=== PATIENT | female | born 1955 | race Caucasian/White ===

== ENCOUNTER 2016-10-12 10:22 | Inpatient (IN) | payer OTHER ==
--- NOTE | ~2016-10-12 | DS ---
Discharge Summary [address] [place]. [address] NAME: MICHEL JACK : 59 STATUS : DIS IN PAT#: [id number] AGE: 60 ADM/REG DATE : 10/12/16 MR#: [id number] REPORT SERV DATE: 10/19/16 DICTATED BY: SCOOTER OCHOA DATE: 10/18/16 REPORT STATUS : Draft TRANSCRIBED BY: KATHY DATE: 10/18/16 ADMISSION DATE: 10/12/2016 DISCHARGE DATE: 10/18/2016 CONSULTATION: None. INVASIVE PROCEDURE: Mechanical intubation and ventilatory support. DISCHARGE DIAGNOSES: 1. Acute hypoxic respiratory failure. 2. Community-acquired pneumonia. 3. Ljaqpla-Notwm-Avall disease. 4. Protein energy malnutrition with cachexia. 5. History of osteoporosis with multiple spine fractures. 6. Hypothyroidism. 7. Relative adrenal insufficiency. 8. History of laryngeal cancer, diagnosed in 2007. 9. History of seizure disorder. 10.History of gastroesophageal reflux disease. DISCHARGE CONDITION: Stable. HISTORY OF PRESENT ILLNESS: For detailed HPI, please make reference to Dr. Mehul Panda's dictation on 10/12/2016. In brief, this is a 60-year-old female with medical history of Vnuwzmd-Cqdbg-Tpebm disease, nonambulatory at home, history of multiple spine fractures, who presented to the emergency room department with concerns of shortness of breath and hypoxia of oxygen level of 62% at home. On presentation in the ER, the patient failed non- rebreather and BiPAP and was subsequently intubated through rapid sequence intubation. The patient was placed on mechanical ventilation. The patient subsequently had a chest x-ray that showed bibasilar atelectasis concerning for community-acquired pneumonia. The patient was started on broad-spectrum antibiotics in the ER. ICU was consulted for evaluation and admission. The patient was subsequently admitted to the MICU. HOSPITAL COURSE: 1. Severe acute hypoxic respiratory failure secondary to community acquired pneumonia. The patient was continued on broad-spectrum antibiotics. Sputum culture came back positive for Klebsiella pneumoniae, pansensitive. The patient was transitioned from broad-spectrum antibiotics to IV Unasyn. The patient's respiratory status continued to improve. Subsequently, she passed SBT trial and was weaned and . The patient was subsequently transferred to the medical floor for further monitoring. While on the floor, the patient's respiratory status continued to improve. The patient was subsequently weaned off oxygen. At the time of discharge, the patient was saturating 100% on room air. The patient's IV Unasyn was transitioned to p.o. Augmentin prior to discharge. The patient was advised to complete a total of seven days antibiotic therapy. The patient was advised to follow up with primary care physician within one to two weeks of discharge. Discharge Summary [address] [place]. [address] NAME: MICHEL JACK : 59 STATUS : DIS IN PAT#: [id number] AGE: 60 ADM/REG DATE : 10/12/16 MR#: [id number] REPORT SERV DATE: 10/19/16 DICTATED BY: SCOOTER OCHOA DATE: 10/18/16 REPORT STATUS : Draft TRANSCRIBED BY: KATHY DATE: 10/18/16 2. Relative adrenal insufficiency. In the ICU, the patient was noted to have a random cortisol of 12, was started on IV hydrocortisone in the ICU for relative . This was subsequently weaned and tapered prior to discharge. The patient was advised to follow up with primary care physician for further evaluation. 3. Septic shock secondary to community-acquired pneumonia. The patient was hypotensive during the course of this admission despite IV fluid resuscitation, required vasopressor while in the ICU. This was subsequently weaned off prior to transfer to medical floor. While on the medical floor, the patient's blood pressure remained stable and sepsis profile subsequently improved with antibiotics treatment prior to discharge. The patient's white blood cell count remained stable. The patient's blood pressure was normal. The patient remained afebrile. The patient was advised to complete seven days of antibiotics and follow up with primary care physician. 4. History of Ftiolda-Lzuyy-Osjwm disease with underlying history of seizure disorder. The patient had no seizures throughout the course of this admission. The patient's home dose of antiepileptic drug was continued during the course of this admission. 5. Hypothyroidism. The patient's levothyroxine was continued prior to discharge. The patient was advised to continue levothyroxine and follow up with primary care physician. DISCHARGE CONDITION: Stable. DISCHARGE FOLLOWUP: 1. Follow up with primary care physician within one to two weeks of discharge. 2. Resume home health. DISCHARGE MEDICATIONS: 1. Prednisone taper. 2. Augmentin 875 mg p.o. b.i.d. 3. Levothyroxine 150 mcg p.o. daily. 4. Folic acid 1 mg p.o. daily. 5. Cholecalciferol 1000 units p.o. daily. 6. Vitamin B12, 2500 mcg p.o. daily. 7. Oxcarbazepine 600 mg tab p.o. b.i.d. 8. Raloxifene 60 mg p.o. daily. 9. Vitamin B1, 500 mg tab p.o. daily. 10.Potassium 20 mEq p.o. t.i.d. 11.Hydrocodone 10/325 p.o. b.i.d. 12.Triazolam 0.25 mg p.o. at bedtime. DISCHARGE ACTIVITY: As tolerated. DISCHARGE DIET: Regular diet. Greater than 35 minutes was used to prepare this patient's discharge, reconcile medication, advise the patient on discharge plans and followup. Discharge Summary [address] [address] NAME: MICHEL JACK : 59 STATUS : DIS IN PAT#: [id number] AGE: 60 ADM/REG DATE : 10/12/16 MR#: [id number] REPORT SERV DATE: 10/19/16 DICTATED BY: SCOOTER OCHOA DATE: 10/18/16 REPORT STATUS : Draft TRANSCRIBED BY: KATHY DATE: 10/18/16 DICTATED BY: MD SARA Saavedra/KATHY Scooter Ochoa MD / [id number] CC: MD Noe Saavedra D.O. Bradley Keel, DO Chad E. Paxson, DO
--- NOTE | ~2016-10-12 | IDS ---
Interim Discharge Summary [facility] [address] [place]. [address] NAME: MICHEL JACK : 59 STATUS : ADM IN [facility]#: [id number] AGE: 60 ADM/REG DATE : 10/12/16 MR#: [id number] REPORT SERV DATE: 10/15/16 DICTATED BY: MEAGAN FRITZ DATE: 10/15/16 REPORT STATUS : Draft TRANSCRIBED BY: MODL DATE: 10/15/16 ADMISSION DATE: 10/12/2016 DISCHARGE DATE: REASON FOR ADMISSION: Acute hypoxemic respiratory failure likely secondary to acute community-acquired pneumonia. Please see Dr. Panda's detailed admitting history and physical dated 10/12/2016 for full details of hospitalization and presentation. HISTORY: Ms. Jack is a 60-year-old lady with underlying Owuigsb-Zddts-Drgge disease, who is nonambulatory at home and gets around in a wheelchair with history multiple spine fractures, who was found to be short of breath at home by family. EMS was called and brought to the emergency room. She was found to be quite hypoxemic with a room air sat of 62%. She was initially placed on a non-rebreather, then BiPAP, and ultimately intubated. She was treated with IV fluids and antibiotics in the emergency department and moved up to the CCU. HOSPITAL COURSE: Ms. Jack clinically improved after treatment with antibiotics for a few days. Her initial regimen was azithromycin and cefepime. She was de-escalated to Unasyn monotherapy on 10/14/2016 also extubated. Her pressors were weaned off and she was continued on stress-dose steroids for mild renal insufficiency with a high metabolic demand due to critical illness. Over the last 24 hours, she has remained clinically stable on 3 L of oxygen and is interactive with her family. She is now moving to the floor for ongoing rehab. ACTIVE PROBLEM LIST: 1. Acute hypoxemic respiratory failure. She is extubated. Continue pulmonary toilet oxygen weaning as tolerated. 2. Klebsiella pneumonia, which is sensitive to Unasyn. She is on day #4 of antibiotics. 3. Septic shock secondary to the above. She is off vasopressors and we are weaning hydrocortisone. 4. Fkebtzi-Aarzy-Irzke disease and a history of underlying seizure disorder, hypothyroidism, and general debility. All stable. 5. Mild thrombocytopenia, is improving, likely secondary to (sepsis). We will plan to move Ms. Jack to monitored bed today and transfer care to Hospital Medicine Service. She has morning labs ordered for tomorrow. Physical Therapy has been consulted. Please call with questions. HATTIE/KATHY Meagan Fritz MD Interim Discharge Summary [address] [address] NAME: MICHEL JACK : 59 STATUS : ADM IN PAT#: [id number] AGE: 60 ADM/REG DATE : 10/12/16 MR#: [id number] REPORT SERV DATE: 10/15/16 DICTATED BY: MEAGAN FRITZ DATE: 10/15/16 REPORT STATUS : Draft TRANSCRIBED BY: KATHY DATE: 10/15/16 / [id number] CC: DO Noe French D.O.
--- NOTE | ~2016-10-12 | HP ---
History And Physical [address] [place]. [address] NAME: MICHEL JACK : 59 STATUS : ADM IN [facility]#: [id number] AGE: 60 ADM/REG DATE : 10/12/16 MR#: [id number] REPORT SERV DATE: 10/12/16 DICTATED BY: MEHUL PANDA DATE: 10/12/16 REPORT STATUS : Draft TRANSCRIBED BY: MODL DATE: 10/12/16 DATE OF ADMISSION: 10/12/2016 60-year-old white female, who is chronically ill with a history of Xiwetys-Khwfx-Thsqv disease, nonambulatory at home, history of multiple spine fractures, who presented today because of acute onset of shortness of breath and hypoxia with oxygen level down to 62% at home. EMS was called and the patient was transported to the emergency room. The patient failed non-rebreather and BiPAP and so had to be intubated through rapid sequence intubation. When I arrived, she was on the ventilator getting IV fluids as well as antibiotics include cefepime and azithromycin for probable pneumonia and she was on propofol for sedation. and daughter were at bedside. The patient does live at home with family and apparently was doing fine yesterday, but then started having issues of shortness of breath with tremor and with low oxygen. She has not been in the hospital in over a year and she has not been on any recent antibiotics or steroids. Chest x-ray shows bibasilar atelectasis right greater than left. REVIEW OF SYSTEMS: Kpijubn-Efzyc-Ylnzv; osteoporosis; multiple vertebral fractures in the past; stage IV laryngeal cancer diagnosed 2007, received chemotherapy; history of seizure disorder; GERD. PAST SURGICAL HISTORY: Hysterectomy, right breast augmentation. ALLERGIES: CODEINE. HOME MEDICATIONS: Reviewed. SOCIAL HISTORY: Lives at home. with children. No tobacco, alcohol, or illicit drugs. FAMILY MEDICAL HISTORY: Noncontributory. LABORATORY DATA AND RADIOLOGY STUDIES: Reviewed. ASSESSMENT AND PLAN: 1. Acute hypoxic respiratory failure. 2. Community-acquired pneumonia. 3. Malnutrition. 4. Sqbphzd-Xatqu-Zzonu. 5. History of osteoporosis and multiple spine fractures. The patient is on the ventilator. Settings were reviewed and adjusted by myself. We will get a repeat arterial blood gas and adjust accordingly. Chest x-ray shows ET tube in good position. We will follow up sputum, blood, and urine cultures as well as urine antigens for strep and Legionella. She is on cefepime and azithromycin. We will continue this in the ICU. She is currently getting IV fluid bolus and will put her on maintenance fluids of LR at 150 mL an hour. We will get patient a PICC line. The patient may need pressors, we will History And Physical [address] [address] NAME: MICHEL JACK : 59 STATUS : ADM IN PAT#: [id number] AGE: 60 ADM/REG DATE : 10/12/16 MR#: [id number] REPORT SERV DATE: 10/12/16 DICTATED BY: MEHUL PANDA DATE: 10/12/16 REPORT STATUS : Draft TRANSCRIBED BY: KATHY DATE: 10/12/16 monitor this closely. She is on propofol for sedation. Followup routine lab work and medicine reconciliation was performed. requested the patient to be full code at this time. 35 minutes of critical care time. CEP/MODL Mehul Panda DO / [id number] CC: DO Noe French D.O.
[2016-10-12 09:59] LABS: BASOPHILS 0.1 %; BASOPHILS ABSOLUTE 0.01 10/3/uL (0.0-0.16); EOSINOPHILS 0 %; IMMATURE GRANULOCYTES 0.2 %; IMMATURE GRANULOCYTES ABSOLUTE 0.02 10/3/uL (0.0-0.11); LYMPHOCYTES 6.2 %; LYMPHOCYTES ABSOLUTE 0.77 10/3/uL (0.67-4.30); MEAN CORPUS HGB CONC 33.4 g/dL (32.0-36.0); MEAN CORPUSCULAR HEMOGLOB 31.1 pg (26.0-34.0); MEAN PLATELET VOLUME 10.4 fL (9.2-13.0); MONOCYTES 4.4 %; MONOCYTES ABSOLUTE 0.55 10/3/uL (0.21-1.20); NEUTROPHILS 89.1 %; NEUTROPHILS ABSOLUTE 11.04 10/3/uL (2.02-8.40); RED CELL COUNT 4.27 10/6/uL (4.0-5.6)
[2016-10-12 10:04] LABS: ER CBC TAT 0 Hrs 13 Mins; HEMATOCRIT 39.8 % (36.0-48.0); HEMOGLOBIN 13.3 g/dL (12.0-16.0); MANUAL DIFF NO %; MEAN CORPUSCULAR VOLUME 93.2 fL (80-100); PLATELET COUNT 130 10/3/uL (150-400); RBC DISTRIBUTION WIDTH 12.5 % (12.0-16.0); WHITE BLOOD CELLS 12.4 10/3/uL (4.5-10.5)
[2016-10-12 10:06] LABS: PARTIAL THROMBO TIME 24.7 SEC (22.5-37.2); PROTIME (NOT ORD) 13.5 SEC (12.0-14.5)
[2016-10-12 10:22] LABS: A/G RATIO 1.2 (0.7-1.9); ALBUMIN 3.8 G/DL (3.5-5.0); ALKALINE PHOSPHATASE 96 U/L (45-117); BUN (BLOOD UREA NITROGEN) 12 MG/DL (6-23); CALCIUM, SERUM 9.1 MG/DL (8.5-10.4); CHLORIDE, SERUM 103 MMOL/L (96-112); CO2 (CARBON DIOXIDE) 25 MMOL/L (24-34); GFR AFRICAN AMERICAN 124 ML/MIN (>=60); GFR NON AFRICAN AMERICAN 107 ML/MIN (>=60); GLOBULIN 3.3 G/DL (2.5-4.1); GLUCOSE, SERUM 142 MG/DL (60-99); LACTATE 2.2 MMOL/L (0.3-2.4); POTASSIUM, SERUM 4.2 MMOL/L (3.5-5.3); SGOT(AST) 29 U/L (5-40); SGPT(ALT) 28 U/L (5-65); SODIUM, SERUM 136 MMOL/L (135-148); TOTAL BILIRUBIN 0.4 MG/DL (0-1.2); TOTAL PROTEIN 7.1 G/DL (6.0-8.5)
[~2016-10-12 10:22] MED LIST: AMB10 PO; B1100 PO; BENZACLIN TOP; BIOTENE DRY; BIOTENE DRY MT; CIP5 PO; CLINDAGEL1 % T; CLINDAMAX1 % TOP; DURA12 TOP; DURA50 TOP; EVISTA60 PO; FOLIC PO; HALCION0.25 MG; HALCION0.25 MG PO; KLOR-CON M2020 MEQ PO; KLOR-CON20 MEQ PO; LEVAQUIN750 MG PO; LEVOTHYROXIN100 MCG PO; LEVOTHYROXIN150 MCG PO; MAGOX4 PO; NORCO1 TAB PO; OXYCOD PO; PHOSPHA 250 PO; PR25 PO; PRILO PO; PROTONIX PO; SUCR; SUCR PO; SYN1 PO; SYNTHROID137 MCG PO; TOPXL50; TRILEPTAL600 MG PO; TRILEPUDL; VITAMIN B-121000 MC1 SL; VITAMIN B-122500 MCG SL; VITAMIN D1000 UNI1 PO; VITAMIN D31000 UNIT PO; XANAX1 MG PO; XANAX2 MG PO; [UNRECOGNIZED DRUG - OTHER] PO
[2016-10-12 10:26] LABS: ASCORBIC ACID (UR NOT ORDER) NEG (NEG); BILIRUBIN, URINE NEGATIVE (NEG); ER URINALYSIS TAT 0 Hrs 10 Mins; KETONE, URINE TRACE MG/DL (NEG); LEUKOCYTE ESTERASE(NOT OR TRACE (NEG); NITRITE (URINE) NEG (NEG); WBC (NOT ORDERED) (RFLEX) 5 (0-5)
[2016-10-12] MEDS ORDERED: ULTRAM50 PO (10:27)
[2016-10-12] MEDS ORDERED: EVISTA60 PO (10:27)
[2016-10-12] MEDS ORDERED: HALCION0.25 MG PO (10:30)
[2016-10-12] MEDS ORDERED: HARD NAILS PO (10:31)
[2016-10-12] MEDS ORDERED: VITAMIN B-1500 MG PO (10:31)
[2016-10-12 10:54] LABS: PROCALCITONIN 0.22 ng/mL (<0.5)
[2016-10-12 13:55] LABS: ALLENS TEST Pos; CARBOXYHEMOGLOBIN 0.3 % (0-3); HCO3 (ACTUAL BICARBONATE) 22.5 MEQ/L (23-27); HEMOBLOGIN CONTENT 12.4 G/DL (12-16); INSTRUMENT SERIAL # 35151; METHEMOGLOBIN 0.6 % (0-3); MODE CMV; O2 CONTENT 17.3 VOL% (18-24); PCO2 (CO2 TENSION) 27 MMHG (35-45); PO2 (O2 TENSION) 147 MMHG (79-93); SAMPLE Arterial; TIDAL VOLUME 450 ML; pH 7.54 (7.37-7.43)
[2016-10-13 04:45] LABS: BASOPHILS 0 %; EOSINOPHILS 0.1 %; EOSINOPHILS ABSOLUTE 0.01 10/3/uL (0.0-0.53); IMMATURE GRANULOCYTES 0.2 %; IMMATURE GRANULOCYTES ABSOLUTE 0.02 10/3/uL (0.0-0.11); LYMPHOCYTES 15.2 %; LYMPHOCYTES ABSOLUTE 1.38 10/3/uL (0.67-4.30); MEAN CORPUS HGB CONC 33.9 g/dL (32.0-36.0); MEAN CORPUSCULAR HEMOGLOB 30.9 pg (26.0-34.0); MEAN CORPUSCULAR VOLUME 91.1 fL (80-100); MEAN PLATELET VOLUME 9.7 fL (9.2-13.0); MONOCYTES 5.1 %; MONOCYTES ABSOLUTE 0.46 10/3/uL (0.21-1.20); NEUTROPHILS 79.4 %; NEUTROPHILS ABSOLUTE 7.23 10/3/uL (2.02-8.40); RBC DISTRIBUTION WIDTH 12.5 % (12.0-16.0); WHITE BLOOD CELLS 9.1 10/3/uL (4.5-10.5)
[2016-10-13 04:47] LABS: HEMATOCRIT 28.6 % (36.0-48.0); HEMOGLOBIN 9.7 g/dL (12.0-16.0); RED CELL COUNT 3.14 10/6/uL (4.0-5.6)
[2016-10-13 04:48] LABS: MANUAL DIFF NO %; PLATELET COUNT 81 10/3/uL (150-400)
[2016-10-13 05:03] LABS: CALCIUM, SERUM 8.7 MG/DL (8.5-10.4); CHLORIDE, SERUM 106 MMOL/L (96-112); CO2 (CARBON DIOXIDE) 27 MMOL/L (24-34); CREATININE 0.45 MG/DL (0.55-1.02); GFR AFRICAN AMERICAN 128 ML/MIN (>=60); GFR NON AFRICAN AMERICAN 110 ML/MIN (>=60); GLUCOSE, SERUM 124 MG/DL (60-99); SODIUM, SERUM 141 MMOL/L (135-148)
[2016-10-13 05:06] LABS: BUN (BLOOD UREA NITROGEN) 8 MG/DL (6-23); PHOSPHORUS, SERUM 1.6 MG/DL (2.5-4.5); POTASSIUM, SERUM 2.8 MMOL/L (3.5-5.3)
[2016-10-13 06:48] LABS: BASOPHILS 0.1 %; BASOPHILS ABSOLUTE 0.01 10/3/uL (0.0-0.16); EOSINOPHILS 0.1 %; EOSINOPHILS ABSOLUTE 0.01 10/3/uL (0.0-0.53); HEMATOCRIT 27.2 % (36.0-48.0); HEMOGLOBIN 9.4 g/dL (12.0-16.0); IMMATURE GRANULOCYTES 0.1 %; IMMATURE GRANULOCYTES ABSOLUTE 0.01 10/3/uL (0.0-0.11); LYMPHOCYTES 15.1 %; LYMPHOCYTES ABSOLUTE 1.39 10/3/uL (0.67-4.30); MEAN CORPUS HGB CONC 34.6 g/dL (32.0-36.0); MEAN CORPUSCULAR HEMOGLOB 31.1 pg (26.0-34.0); MEAN CORPUSCULAR VOLUME 90.1 fL (80-100); MEAN PLATELET VOLUME 9.9 fL (9.2-13.0); MONOCYTES 4.9 %; MONOCYTES ABSOLUTE 0.45 10/3/uL (0.21-1.20); NEUTROPHILS 79.7 %; NEUTROPHILS ABSOLUTE 7.31 10/3/uL (2.02-8.40); PLATELET COUNT 68 10/3/uL (150-400); RBC DISTRIBUTION WIDTH 12.8 % (12.0-16.0); RED CELL COUNT 3.02 10/6/uL (4.0-5.6); WHITE BLOOD CELLS 9.2 10/3/uL (4.5-10.5)
[2016-10-13 06:49] LABS: MANUAL DIFF NO %
[2016-10-13 07:12] LABS: PLATELET ESTIMATE DEC (ADEQUATE); RBC MORPHOLOGY NORM (NORMAL)
[2016-10-13 10:16] LABS: ULTRASENSITIVE TSH 0.007 MCIU/ML (0.358-3.740)
[2016-10-13 15:36] LABS: POTASSIUM, SERUM 2.8 MMOL/L (3.5-5.3)
[2016-10-14 03:34] LABS: BASOPHILS 0.1 %; BASOPHILS ABSOLUTE 0.01 10/3/uL (0.0-0.16); EOSINOPHILS 0.6 %; EOSINOPHILS ABSOLUTE 0.04 10/3/uL (0.0-0.53); HEMOGLOBIN 10.7 g/dL (12.0-16.0); IMMATURE GRANULOCYTES 0.1 %; IMMATURE GRANULOCYTES ABSOLUTE 0.01 10/3/uL (0.0-0.11); LYMPHOCYTES 16.1 %; LYMPHOCYTES ABSOLUTE 1.17 10/3/uL (0.67-4.30); MEAN CORPUS HGB CONC 35.1 g/dL (32.0-36.0); MEAN CORPUSCULAR HEMOGLOB 32.3 pg (26.0-34.0); MEAN CORPUSCULAR VOLUME 92.1 fL (80-100); MEAN PLATELET VOLUME 10.2 fL (9.2-13.0); MONOCYTES ABSOLUTE 0.29 10/3/uL (0.21-1.20); NEUTROPHILS 79.1 %; NEUTROPHILS ABSOLUTE 5.73 10/3/uL (2.02-8.40); PLATELET COUNT 75 10/3/uL (150-400); RBC DISTRIBUTION WIDTH 12.7 % (12.0-16.0); RED CELL COUNT 3.31 10/6/uL (4.0-5.6); WHITE BLOOD CELLS 7.3 10/3/uL (4.5-10.5)
[2016-10-14 03:39] LABS: HEMATOCRIT 30.5 % (36.0-48.0); MANUAL DIFF NO %
[2016-10-14 03:47] LABS: ALBUMIN 3.1 G/DL (3.5-5.0); BUN (BLOOD UREA NITROGEN) 7 MG/DL (6-23); CALCIUM, SERUM 8.7 MG/DL (8.5-10.4); CHLORIDE, SERUM 104 MMOL/L (96-112); CO2 (CARBON DIOXIDE) 27 MMOL/L (24-34); CREATININE 0.35 MG/DL (0.55-1.02); GFR AFRICAN AMERICAN 139 ML/MIN (>=60); GFR NON AFRICAN AMERICAN 120 ML/MIN (>=60); GLOBULIN 3.2 G/DL (2.5-4.1); GLUCOSE, SERUM 121 MG/DL (60-99); SGOT(AST) 16 U/L (5-40); SGPT(ALT) 18 U/L (5-65); SODIUM, SERUM 138 MMOL/L (135-148); TOTAL BILIRUBIN 0.4 MG/DL (0-1.2); TOTAL PROTEIN 6.3 G/DL (6.0-8.5)
[2016-10-14 03:48] LABS: ALKALINE PHOSPHATASE 63 U/L (45-117)
[2016-10-14 03:52] LABS: PLATELET ESTIMATE DEC (ADEQUATE); RBC MORPHOLOGY NORM (NORMAL)
[2016-10-15 03:41] LABS: ALBUMIN 3.4 G/DL (3.5-5.0); BUN (BLOOD UREA NITROGEN) 10 MG/DL (6-23); CALCIUM, SERUM 8.9 MG/DL (8.5-10.4); CHLORIDE, SERUM 106 MMOL/L (96-112); CO2 (CARBON DIOXIDE) 25 MMOL/L (24-34); CREATININE 0.36 MG/DL (0.55-1.02); GFR AFRICAN AMERICAN 138 ML/MIN (>=60); GFR NON AFRICAN AMERICAN 119 ML/MIN (>=60); POTASSIUM, SERUM 3.4 MMOL/L (3.5-5.3); SODIUM, SERUM 144 MMOL/L (135-148)
[2016-10-15 03:42] LABS: GLUCOSE, SERUM 84 MG/DL (60-99); PHOSPHORUS, SERUM 3.7 MG/DL (2.5-4.5)
[2016-10-16 04:09] LABS: BASOPHILS 0 %; EOSINOPHILS 0 %; HEMATOCRIT 30.5 % (36.0-48.0); HEMOGLOBIN 10.3 g/dL (12.0-16.0); MEAN CORPUS HGB CONC 33.8 g/dL (32.0-36.0); MEAN CORPUSCULAR HEMOGLOB 31.3 pg (26.0-34.0); MEAN CORPUSCULAR VOLUME 92.7 fL (80-100); MONOCYTES 5.5 %; MONOCYTES ABSOLUTE 0.21 10/3/uL (0.21-1.20); NEUTROPHILS 73.5 %; PLATELET COUNT 96 10/3/uL (150-400); RBC DISTRIBUTION WIDTH 12.8 % (12.0-16.0); RED CELL COUNT 3.29 10/6/uL (4.0-5.6)
[2016-10-16 04:12] LABS: MANUAL DIFF NO %; WHITE BLOOD CELLS 3.8 10/3/uL (4.5-10.5)
[2016-10-16 04:31] LABS: CALCIUM, SERUM 8.9 MG/DL (8.5-10.4); CHLORIDE, SERUM 114 MMOL/L (96-112); CO2 (CARBON DIOXIDE) 26 MMOL/L (24-34); CREATININE 0.38 MG/DL (0.55-1.02); GFR AFRICAN AMERICAN 135 ML/MIN (>=60); GFR NON AFRICAN AMERICAN 117 ML/MIN (>=60); POTASSIUM, SERUM 3.3 MMOL/L (3.5-5.3); SODIUM, SERUM 146 MMOL/L (135-148)
[2016-10-16 04:36] LABS: BUN (BLOOD UREA NITROGEN) 14 MG/DL (6-23); GLUCOSE, SERUM 106 MG/DL (60-99); PHOSPHORUS, SERUM 2.6 MG/DL (2.5-4.5)
[2016-10-17 06:15] LABS: BASOPHILS 0 %; EOSINOPHILS 0.3 %; EOSINOPHILS ABSOLUTE 0.01 10/3/uL (0.0-0.53); HEMATOCRIT 31.6 % (36.0-48.0); HEMOGLOBIN 10.7 g/dL (12.0-16.0); IMMATURE GRANULOCYTES 0.3 %; IMMATURE GRANULOCYTES ABSOLUTE 0.01 10/3/uL (0.0-0.11); LYMPHOCYTES 33.8 %; LYMPHOCYTES ABSOLUTE 1.21 10/3/uL (0.67-4.30); MANUAL DIFF NO %; MEAN CORPUS HGB CONC 33.9 g/dL (32.0-36.0); MEAN CORPUSCULAR HEMOGLOB 31.4 pg (26.0-34.0); MEAN CORPUSCULAR VOLUME 92.7 fL (80-100); MEAN PLATELET VOLUME 9.5 fL (9.2-13.0); MONOCYTES 9.8 %; MONOCYTES ABSOLUTE 0.35 10/3/uL (0.21-1.20); NEUTROPHILS 55.8 %; PLATELET COUNT 105 10/3/uL (150-400); RBC DISTRIBUTION WIDTH 12.7 % (12.0-16.0); RED CELL COUNT 3.41 10/6/uL (4.0-5.6); WHITE BLOOD CELLS 3.6 10/3/uL (4.5-10.5)
[2016-10-17 06:27] LABS: ALBUMIN 3.1 G/DL (3.5-5.0); CHLORIDE, SERUM 107 MMOL/L (96-112); CO2 (CARBON DIOXIDE) 30 MMOL/L (24-34); CREATININE 0.33 MG/DL (0.55-1.02); GFR AFRICAN AMERICAN 142 ML/MIN (>=60); GFR NON AFRICAN AMERICAN 122 ML/MIN (>=60); GLUCOSE, SERUM 121 MG/DL (60-99); POTASSIUM, SERUM 3.3 MMOL/L (3.5-5.3); SODIUM, SERUM 144 MMOL/L (135-148)
[2016-10-17 06:28] LABS: BUN (BLOOD UREA NITROGEN) 5 MG/DL (6-23)
[2016-10-18 06:51] LABS: BASOPHILS 0 %; EOSINOPHILS 1.5 %; EOSINOPHILS ABSOLUTE 0.06 10/3/uL (0.0-0.53); HEMATOCRIT 34.7 % (36.0-48.0); HEMOGLOBIN 11.7 g/dL (12.0-16.0); IMMATURE GRANULOCYTES 0.3 %; IMMATURE GRANULOCYTES ABSOLUTE 0.01 10/3/uL (0.0-0.11); LYMPHOCYTES 46.6 %; LYMPHOCYTES ABSOLUTE 1.84 10/3/uL (0.67-4.30); MANUAL DIFF NO %; MEAN CORPUS HGB CONC 33.7 g/dL (32.0-36.0); MEAN CORPUSCULAR HEMOGLOB 31.2 pg (26.0-34.0); MEAN CORPUSCULAR VOLUME 92.5 fL (80-100); MEAN PLATELET VOLUME 9.4 fL (9.2-13.0); MONOCYTES 10.4 %; MONOCYTES ABSOLUTE 0.41 10/3/uL (0.21-1.20); NEUTROPHILS 41.2 %; NEUTROPHILS ABSOLUTE 1.63 10/3/uL (2.02-8.40); PLATELET COUNT 109 10/3/uL (150-400); RBC DISTRIBUTION WIDTH 12.8 % (12.0-16.0); RED CELL COUNT 3.75 10/6/uL (4.0-5.6)
[2016-10-18 07:05] LABS: BUN (BLOOD UREA NITROGEN) 6 MG/DL (6-23); CALCIUM, SERUM 9.1 MG/DL (8.5-10.4); CHLORIDE, SERUM 106 MMOL/L (96-112); CO2 (CARBON DIOXIDE) 30 MMOL/L (24-34); CREATININE 0.42 MG/DL (0.55-1.02); GFR AFRICAN AMERICAN 131 ML/MIN (>=60); GFR NON AFRICAN AMERICAN 113 ML/MIN (>=60); GLUCOSE, SERUM 97 MG/DL (60-99); PHOSPHORUS, SERUM 2.5 MG/DL (2.5-4.5); POTASSIUM, SERUM 2.8 MMOL/L (3.5-5.3); SODIUM, SERUM 136 MMOL/L (135-148)
[2016-10-18] MEDS ORDERED: AUG875 PO (12:10)
[2016-10-18] MEDS ORDERED: STERAPRED DS10 MG (12:11)
== END 2016-10-18 14:50 | disposition home or self-care (01) | DRG 871 ==
LOC: ER 10:22 → CCU 10:29 → 7NO 10-16 17:14
PROVIDERS: Hospitalist; Internal Medicine Critical Care Medicine; Internal Medicine Pulmonary Disease
PROC: 5A1945Z Respiratory Ventilation, 24-96 Consecutive Hours (ICD-10-PCS; principal; 2016-10-12)
PROC: 0BH17EZ Insertion of Endotracheal Airway into Trachea, Via Natural or Artificial Opening (ICD-10-PCS; 2016-10-12)
PROC: 5A09457 Assistance with Respiratory Ventilation, 24-96 Consecutive Hours, Continuous Positive Airway Pressure (ICD-10-PCS; 2016-10-12)
DX: A41.9 Sepsis, unspecified organism (principal); J96.21 Acute and chronic respiratory failure with hypoxia; R65.21 Severe sepsis with septic shock; J15.0 Pneumonia due to Klebsiella pneumoniae; R64 Cachexia; E87.2 Acidosis; D69.6 Thrombocytopenia, unspecified; E46 Unspecified protein-calorie malnutrition; G60.0 Hereditary motor and sensory neuropathy; M81.0 Age-related osteoporosis without current pathological fracture; G40.909 Epilepsy, unspecified, not intractable, without status epilepticus; K21.9 Gastro-esophageal reflux disease without esophagitis; Z08 Encounter for follow-up examination after completed treatment for malignant neoplasm; Z85.21 Personal history of malignant neoplasm of larynx; Z98.890 Other specified postprocedural states; G89.29 Other chronic pain; E03.9 Hypothyroidism, unspecified
CPT/HCPCS: 31720; 36569; 36600; 71010; 74000; 80048; 80053; 80069; 81001; 82330; 82533; 82803; 82805; 82947; 83605; 83735; 84100; 84132; 84145; 84295; 84443; 85014; 85025; 85610; 85730; 87040; 87070; 87077; 87186; 87205; 87449; 87641; 92610-GN; 93005; 93306; 94002; 94003; 94640; 94660; 94770; 96374; 96375; 97110-GP; 97162-GP; 99291; A9270-GY; C1751; C9113; J0295; J0330; J0456; J0692; J1720; J2405; J3010; J3475; P9045